=== PATIENT | female | born 1975 | race Caucasian/White ===

== ENCOUNTER 2016-11-24 13:42 | Emergency (ER) | payer BC | END 2016-11-24 16:12 | disposition home or self-care (01) | LOC: ER1 13:42 | DX: S83.91XA Sprain of unspecified site of right knee, initial encounter (principal); X58.XXXA Exposure to other specified factors, initial encounter | CPT/HCPCS: 73564; 99283 ==

== ENCOUNTER 2021-05-02 11:53 | Emergency (ER) | payer MEDICAID ==
[~2021-05-02 11:53] MED LIST: NAPROSYN500 MG PO; ZOVIRAX 800 MG800 MG PO
[2021-05-02] MEDS ORDERED: IBUPROFEN600 MG PO (12:39)
== END 2021-05-02 12:46 | disposition home or self-care (01) ==
LOC: ER1 11:53
DX: M25.571 Pain in right ankle and joints of right foot (principal); F17.210 Nicotine dependence, cigarettes, uncomplicated
CPT/HCPCS: 73610; 99283

== ENCOUNTER 2021-09-06 10:35 | Emergency (ER) | payer SELFPAY ==
[~2021-09-06 10:35] MED LIST changes: +IBUPROFEN600 MG PO
== END 2021-09-06 13:09 | disposition home or self-care (01) ==
LOC: ER1 10:35
DX: J02.9 Acute pharyngitis, unspecified (principal); R51.9 Headache, unspecified; F17.200 Nicotine dependence, unspecified, uncomplicated; Z20.822 Contact with and (suspected) exposure to COVID-19
CPT/HCPCS: 87081; 87880; 99283; U0002

== ENCOUNTER 2021-09-08 12:38 | Emergency (ER) | payer SELFPAY | END 2021-09-08 18:45 | disposition left against medical advice (07) | LOC: ER1 12:38 | DX: Z53.21 Procedure and treatment not carried out due to patient leaving prior to being seen by health care provider (principal) ==

== ENCOUNTER 2021-09-25 10:05 | Emergency (ER) | payer SELFPAY | END 2021-09-25 11:16 | disposition home or self-care (01) | LOC: ER1 10:05 | DX: M79.671 Pain in right foot (principal); G89.29 Other chronic pain; R20.2 Paresthesia of skin; F17.200 Nicotine dependence, unspecified, uncomplicated | CPT/HCPCS: 99283 ==

== ENCOUNTER → 2021-12-30 | Outpatient (CLI) | payer BC | LOC: RAD 12:14 | DX: M54.50 Low back pain, unspecified (principal); M25.511 Pain in right shoulder; M47.816 Spondylosis without myelopathy or radiculopathy, lumbar region; M19.011 Primary osteoarthritis, right shoulder | CPT/HCPCS: 72100; 73030 ==

== ENCOUNTER → 2022-01-26 | Outpatient (CLI) | payer BC | LOC: EXRD 08:50 | DX: R74.8 Abnormal levels of other serum enzymes (principal); K76.0 Fatty (change of) liver, not elsewhere classified | CPT/HCPCS: 76705 ==

== ENCOUNTER 2022-03-18 13:44 | Emergency (ER) | payer BC ==
[2022-03-18 15:05] LABS: HEMOGLOBIN 15.1 gm/dl (12.3-15.3); RED BLOOD COUNT 4.93 M/UL (4.00-5.10); WHITE BLOOD COUNT 5.4 K/UL (4.5-11.0)
[2022-03-18 15:37] LABS: BUN/CREATININE RATIO 18 (0-10)
== END 2022-03-18 17:00 | disposition home or self-care (01) ==
LOC: ER1 13:44
PROVIDERS: Nurse Practitioner
DX: R51.9 Headache, unspecified (principal); F17.210 Nicotine dependence, cigarettes, uncomplicated
CPT/HCPCS: 70450; 80053; 85025; 85652; 86140; 96374; 96375; 99284; G0480; J1200; J1885